=== PATIENT | female | born 1960 | race Caucasian/White ===

== ENCOUNTER 2018-06-07 15:58 | Outpatient (REF) | payer BC, SELFPAY ==
--- NOTE | 2018-06-07 14:45 | PAPFT_PTH ---
PATIENT: Mellisa Finn LOC: [facility] U#:[id number] AGE/SX: 58/F ROOM: RE06/07/[address]: ALEXY Stephen : 1960 BED: DIS: 06/07/2018 SPEC #: [id number] RECD: 06/07/18 17:38 STATUS: KALIN SIU #: [id number] KARTIK: 06/07/18 14:[address]: Betsey Lopez DEPT: [facility] Cytology RECD BY: Jody Figueroa Tissues: 1 - CX/ENDOCX FOR PAP SMEARS Procedures: PAP THIN PREP/UVM Screening HPV DNA PROBE Comments: [id number]
== END 2018-06-07 16:18 ==
LOC: LBN 15:58
PROVIDERS: Visit Provider Nurse Practitioner Family
DX: Z12.4 Encounter for screening for malignant neoplasm of cervix (principal); Z11.51 Encounter for screening for human papillomavirus (HPV)
CPT/HCPCS: 88142; 87624

== ENCOUNTER 2018-08-24 07:15 | Outpatient (CLI) | payer BC, SELFPAY ==
--- NOTE | 2018-08-24 07:30 | DI.MAMMO_ITS ---
SYMPTOM/DIAGNOSIS: SCREENING MAMMOGRAMS: Mammograms were interpreted according to the usual protocol including computer analysis with CAD system, tomosynthesis and C view imaging. The breasts are of moderate density with fairly symmetrical distribution of fibroglandular tissue. No dominant mass identified in either breast. There are very tiny punctate microcalcifications in a regional distribution in the left breast, unchanged in appearance in comparison with previous examinations including 03/2015. No additional change seen. CONCLUSION: No specific evidence of malignancy at this time. Routine screening examinations are suggested at yearly intervals in this age group according to the ACS/ACR guidelines. Category 1. Breast density, Category B. MQSA ASSESSMENT OF FINDINGS: Negative. Category 1. Patient will receive a letter notifying them of these results. BI-RADS category B. There are scattered areas of fibroglandular density.
== END 2018-08-24 07:35 ==
PROVIDERS: PCP Internal Medicine; Visit Provider Internal Medicine
DX: Z12.31 Encounter for screening mammogram for malignant neoplasm of breast (principal)
CPT/HCPCS: 77063; 77067

== ENCOUNTER 2019-10-03 02:03 | Outpatient (CLI) | payer BC, SELFPAY ==
--- NOTE | 2019-10-03 08:30 | DI.MAMMO_ITS ---
EXAM: MG MAMMO SCREENING CLINICAL HISTORY: screening,z12.39 TECHNIQUE: Bilateral full field digital CC and MLO mammographic images were obtained with 3D tomosyn thesis and utilizing computer aided detection (CAD). COMPARISON: Available for comparison. FINDINGS: Masses/Architectural Distortion: None seen. Microcalcifications: No suspicious pleomorphic-type are seen. Skin Thickening/Nipple Retraction: None. IMPRESSION: 1. No significant interval change with no specific features of malignancy noted. 2. Unless there is more urgent need, screening mammography is recommended, as per [place] guidelines. BI-RADS Category 1 - Negative Breast Density - Category B - Scattered areas of fibroglandular density A negative radiographic report should not delay biopsy if a dominant or clinically suspicious mass is present. Up to ten percent of cancers are not identified on mammography. A negative report may reinforce clinical impression. Adenosis and dense breasts may obscure an underlying neoplasm. False positive reports average 6 to 10%. Patient will receive a letter notifying them of these results.
== END 2019-10-03 02:23 ==
PROVIDERS: PCP Internal Medicine; Visit Provider Nurse Practitioner Family
DX: Z12.31 Encounter for screening mammogram for malignant neoplasm of breast (principal)
CPT/HCPCS: 77063; 77067

== ENCOUNTER 2019-11-01 06:22 | Day surgery (SDC) | payer BC, SELFPAY ==
[2019-11-01 06:22] VITALS: BP 110/66; PULSE 52; RESP 18; TEMP 36.1; O2SAT 98
[2019-11-01] MEDS: Lactated Ringers 1,000 ML 80 ML IV (06:52)
--- NOTE | 2019-11-01 07:17 | W.PM.DSUDISC ---
Discharge Plan Disposition Patient Disposition: HOME Condition: Good Discharge Details Reason For Visit: Colonoscopy Attending Provider: Vanda Walker Primary Care Provider: Anahi Martinez Home Meds and New Rx's Prescriptions: Continued estradiol [Estrace] 0.01 % (0.1 mg/gram) cream 42.5 gm VG twice weekly Qty: 1 RF: 3 Discharge Instructions Additional Instructions: Findings: Your colonoscopy was normal. Follow up: Plan for a colonoscopy in 5-7 years due to prior history of polyps Please call if you develop: fevers >101.5 Nausea or Vomiting Abdominal pain that is not transient DAY SURGERY UNIT POST COLONOSCOPY INSTRUCTIONS 1. Because there will be medication in your system for the next 24 hours, you may feel a little sleepy. Your coordination will be affected. Therefore: a. Do not drive or operate dangerous equipment for 24 hours. b. Do not drink alcohol beverages for 24 hours (not even beer). c. Plan to go home and rest for the day. 2. Generally there are no restrictions on your activity after a day or so has gone by, but you may feel a bit fatigued for a few days. 3 After you arrive home you may have a light meal and return to a normal diet as you can tolerate it without feeling sick to your stomach. 4. After surgery, you may feel pain or discomfort. This should be only transient, but if it persists please contact your doctor. 5. If there are any questions regarding the findings of your procedure, please feel free to contact your doctor. 6. If you are unable to contact your doctor with a problem, contact the hospital at [phone]. 7. Continue all your regular medications unless directed otherwise. I understand the above instructions and have no questions. Signature of Patient or Responsible Adult Escort Date/Time Name of Responsible Adult Escort Signature of Nurse Date/Time Activity:: Activity as Tolerated Diet:: As Tolerated Discharge Orders Discharge Orders: Discharge Order (Routine); Ordered 11/01/19 Ordered By: Vanda Walker DS: Diagnosis Discharge Diagnosis (1) History of colon polyps: Status: Acute
--- NOTE | 2019-11-01 08:23 | W.COLOREPORT ---
Date of service: 11/01/19 Time of Service: 08:23 Colonoscopy Report Date of procedure: 11/01/19 Pre-op diagnosis general: History of colon polyps Post-op diagnosis procedure note: other (Normal colon) Procedure: Colonoscopy Surgeon: Vanda Walker Anesthesia proc note operative: MAC Disposition: same day Indications: This patient presents for routine colonoscopy. Her last colonoscopy showed several polyps. She is asymptomatic and has no FH colon cancer. Procedure Description: The patient was placed in the left Stark position. Propofol was titrated to sedation. Digital rectal examination revealed no abnormalities. The scope was advanced to the cecum with some difficulty due to a tortuous colon. She also had many seeds within the colon which fortunately did not impair visualization. The ileocecal valve and appendiceal orifice were clearly identified. The prep was adequate. The scope was slowly withdrawn over the course of greater than 6 minutes with no abnormalities seen in the ascending, transverse, descending, sigmoid colon or rectum including on retroflexed view. The patient tolerated the procedure well and was stable to recovery. Plan for routine screening colonoscopy in 7 years or sooner if symptoms indicate.
[2019-11-01 08:50] VITALS: BP 99/65; PULSE 45; RESP 16; TEMP 36.2; O2SAT 100
== END 2019-11-01 09:10 | disposition home or self-care (01) ==
PROVIDERS: PCP Internal Medicine; Visit Provider Surgery
PROC: 0DJD8ZZ Inspection of Lower Intestinal Tract, Via Natural or Artificial Opening Endoscopic (ICD-10-PCS; CPT 45378; principal; 2019-11-01 07:30)
DX: Z12.11 Encounter for screening for malignant neoplasm of colon (principal); Z86.010 Personal history of colon polyps; Q43.8 Other specified congenital malformations of intestine
CPT/HCPCS: 45378; J2001; J2405

== ENCOUNTER 2020-07-06 09:27 | Outpatient (REF) | payer BC, SELFPAY ==
--- NOTE | 2020-07-03 09:00 | PAPFT_PTH ---
PATIENT: Mellisa Finn LOC: [facility] U#:[id number] AGE/SX: 60/F ROOM: RE07/06/[address]: ALEXY Stephen : 1960 BED: DIS: 07/06/2020 SPEC #: [id number] RECD: 07/06/20 12:56 STATUS: KALIN REEmeka #: [id number] KARTIK: 07/03/20 09:[address]: Betsey Lopez DEPT: [facility] Cytology RECD BY: Jody Figueroa ENTERED: 07/06/20 12:56 SP TYPE: PAPFT OTHR DR: Anahi Martinez Tissues: 1 - CX/ENDOCX FOR PAP SMEARS Procedures: PAP THIN PREP/UVM Screening HPV DNA PROBE Comments: [id number]
== END 2020-07-06 09:28 | disposition home or self-care (01) ==
LOC: LBN 09:27
PROVIDERS: PCP Internal Medicine; Visit Provider Nurse Practitioner Family
DX: Z12.4 Encounter for screening for malignant neoplasm of cervix (principal); Z11.51 Encounter for screening for human papillomavirus (HPV)
CPT/HCPCS: 88142; 87624

== ENCOUNTER 2020-07-16 11:16 | Outpatient (REF) | payer BC, SELFPAY ==
[2020-07-16 16:04] LABS: BUN 19 mg/dL (7-18); CREATININE 0.8 mg/dL (0.55-1.02); Calcium 8.9 mg/dL (8.5-10.1); Calculated LDL 113 mg/dL (<100); Chloride 105 mmol/L (98-107); Cholesterol 181 mg/dL (<200); Glucose 85 mg/dL (74-106); HDL Cholesterol 53 mg/dL (40-60); Potassium 4.5 mmol/L (3.5-5.1); Sodium 143 mmol/L (136-145); Triglyceride 77 mg/dL (<150)
== END 2020-07-16 11:17 | disposition home or self-care (01) ==
LOC: NCHCN 11:16
PROVIDERS: PCP Internal Medicine; Visit Provider Nurse Practitioner Family
DX: Z00.00 Encounter for general adult medical examination without abnormal findings (principal); Z13.220 Encounter for screening for lipoid disorders; Z13.228 Encounter for screening for other metabolic disorders
CPT/HCPCS: 80048; 80061

== ENCOUNTER 2020-10-07 02:10 | Outpatient (CLI) | payer BC, SELFPAY ==
--- NOTE | 2020-10-07 08:47 | DI.MAMMO_ITS ---
Exam(s) MAMMO SCREENING EXAM: MAMMO SCREENING CLINICAL HISTORY: screening. TECHNIQUE: Bilateral full field digital CC and MLO mammographic images were obtained with 3D tomosyn thesis and utilizing computer aided detection (CAD). COMPARISON: Prior mammograms dating back to 1000, the most recent being September 2019. FINDINGS: There are no new spiculated masses nor malignant appearing microcalcification groups. Punctate benign-appearing microcalcifications in the left breast again noted. There is no significant architectural distortion nor skin thickening-retraction. IMPRESSION: Benign findings. No radiographic evidence of malignancy BI-RADS Category 2 - Benign Findings Breast Density - Category B - Scattered areas of fibroglandular density Breast density Category C or D implies that the patient has dense breast tissue. Dense breast tissue can make it harder to find cancer on a mammogram. Dense breast tissue is also associated with an incr eased risk of breast cancer. This information about the result of the mammogram report was provided to the patient to raise their awareness. Use this report when you speak with the patient about their risks for breast cancer, which includes their family history. At that time, you may recommend additional screening tests (Ultrasoun d or MRI) as these tests may add significant information. A negative radiographic report should not delay biopsy if a dominant or clinically suspicious mass is present. Up to ten percent of cancers are not identified on mammography. A negative report may reinforce clinical impression. Adenosis and dense breasts may obscure an underlying neoplasm. False positive reports average 6 to 10%. Patient will receive a letter notifying them of these results.
== END 2020-10-07 02:30 ==
PROVIDERS: PCP Internal Medicine; Visit Provider Nurse Practitioner Family
DX: Z12.31 Encounter for screening mammogram for malignant neoplasm of breast (principal)
CPT/HCPCS: 77063; 77067

== ENCOUNTER → 2021-08-17 01:42 | Outpatient (CLI) | payer BC, SELFPAY ==
--- NOTE | 2021-08-17 15:00 | ETT_ITS ---
APPROVED REPORT Exam: Exercise Treadmill Patient Location: Out-Patient Room/Bed: Stress Nurse: Emily Landin RN Ordering Provider:KEILY FRANKS, Contact Number: [phone] BMI: 24.26 Baseline Rhythm: Sinus Bradycardia Comment: RSR' in V1 and V2, short IA interval, diffuse ST depressions inferior and lateral leads Indications: Bradycardia, exertional chest pain Medical History Medical History: Bradycardia, asthma Cardiac Medications: ProAir inhaler Allergies: NKA Cardiac Risk Factors: Asthma, family hx Previous Cardiac Procedures: None Pretest Chest Pain Characteristics: None Exercise History: Physically active Physical Disabilities: None Lung Sounds: Clear to auscultation, Clear to auscultation Heart Sounds: Regular, Bradycardia Stress Test Details Test: Exercise stress testing was performed using a Abe protocol. Rest Stress HR Resting HR Supine: 46 bpm Max Heart Rate (APMHR): 160 bpm Resting HR Standin bpm Target HR (85% APMHR): 136 bpm Max HR Achieved: 125 bpm % of APMHR: 78 Recovery HR: 80 bpm HR response to stress: Normal HR response to stress Comment: Nondiagnostic, THR not met BP Resting BP Supine: 150/74 mmHg Resting BP Standin/72 mmHg Max BP: 194/76 mmHg Recovery BP: 160/68 mmHg BP response to stress: Normal blood pressure response to stress. ECG Resting ECG: Sinus Bradycardia Ectopy: None Comment: RSR' in V1 and V2, short IA interval, diffuse ST depressions inferior and lateral leads Stress ECG: Sinus Tachycardia ST Change: Nondiagnostic low heart rate Arrhythmia: None Recovery ECG: Sinus Rhythm Recovery ST Change: Nondiagnostic low heart rate Recovery Arrhythmia: Rare PAC Clinical Reason for Termination: Fatigue, stress incontinence Stress Symptoms: General Fatigue Exercise duration: 12 min47 sec Highest Stage Reached: Stage 5: 5.0 mph at 18% grade. Exercise capacity: 14.01 METs Eric Treadmill Score: 12.1 Rate Pressure Product: [id number] Stress ECG Conclusion 1. The resting electrocardiogram was within normal limits 2. The patient exercised on the Abe protocol and completed a workload of 14.01 METS, stopping due t o fatigue 3. Normal hemodynamic response to exercise. Patient achieved 78% of predicted heart rate for age 4. At that level of exercise and heart rate there was no evidence of myocardial ischemia 5. Impression: Excellent exercise capacity, electrocardiographically nondiagnostic due to submaximal heart rate Eric Treadmill Score is 12.1 which is Low risk. Stress Test Summary STAGE Time (mins) Speed (mph) Grade (%) HR BP SYMPTOMS METS Supine 46 150/74 Standing 52 126/72 SpO2 99% 1 3 1.7 10 78 148/70 SpO2 98% 4.6 2 6 2.5 12 92 152/68 SpO2 98% 7 3 9 3.4 14 110 164/68 SpO2 98% 10.2 4 12 4.2 16 121 SpO2 96% 12.9 5 15 5.0 18 125 SpO2 89% 17.2 1 min recovery 112 190/74 SpO2 98% 3 min recovery 82 194/76 SpO2 98% 6 min recovery 80 160/68 SpO2 98%
== END ==
PROVIDERS: PCP Internal Medicine; Visit Provider Nurse Practitioner Family
DX: R00.1 Bradycardia, unspecified (principal); R07.89 Other chest pain
CPT/HCPCS: 93017

== ENCOUNTER 2021-08-18 10:25 | Emergency (ER) | payer BC, SELFPAY ==
[2021-08-18] VITALS (25 sets, daily range): BP systolic 134–158; BP diastolic 58–112; PULSE 36–62; RESP 10–30; TEMP 36.9; O2SAT 98–100
--- NOTE | 2021-08-18 10:15 | RT.EKG_ITS ---
APPROVED REPORT Exam: Resting ECG Reason for Exam: diff breathing Patient Location: E HR:47 bpm ECG Measurements Heart Rate 47 AXIS ID 158 P 73 QRSd 111 QRS 47 QT 487 T 3 QTc 432 Conclusion Sinus bradycardia...rate< [address] depression, diffuse leads...ST <-0.03mV, ant/lat/inf
--- NOTE | 2021-08-18 10:45 | RT.EKG_ITS ---
APPROVED REPORT Exam: Resting ECG Reason for Exam: Low HR in 30s Patient Location: E HR:35 bpm ECG Measurements Heart Rate 35 AXIS VA 149 P 54 QRSd 117 QRS 50 QT 513 T 34 QTc 393 Conclusion Sinus bradycardia...rate< 60 Nonspecific intraventricular conduction delay...QRSd >115mS, not LBBB/RBBB Borderline ST depression, diffuse leads...ST <-0.07mV, ant/lat/inf
[2021-08-18 11:12] LABS: Source Nasal/Nares
--- NOTE | 2021-08-18 11:14 | ED.GENADUL_ITS ---
Discharge Plan Disposition Patient Disposition: NENA FLORES ([facility]) Condition: Serious Discharge Details Clinical Impression: Symptomatic bradycardia Primary Care Provider: Kelsie Strong ED Provider: Chandan Tate Home Meds and New Rx's Prescriptions: No Action clotrimazole-betamethasone 1-0.05 % cream 1 applic topical BID 10 Days Qty: 15 2RF albuterol sulfate [ProAir HFA] 90 mcg/actuation HFA aerosol inhaler 2 puff inhalation Q6H PRN0RF estradiol 0.01 % (0.1 mg/gram) cream See Rx Instructions .ROUTE .COMPLEX Qty: 42.5 4RF Dose Instruction: INSERT 1 GRAM VAGINALLY TWICE WEEKLY Rx Instructions: INSERT 1 GRAM VAGINALLY TWICE WEEKLY Discharge Data Discharge Date/Time-TO BE ENTERED AT DEPARTURE: 08/18/21 13:00 Medical Decision Making 1100 --61-year-old female with history of bradycardia, here with lightheadedness with severe bradycardia heart rate in the 30s. Patient normotensive. Patient currently with heart rate in the 40s intermittently dropping into the 30s and symptomatic during these times. Patient is not on beta-blockers or other inotropic medication. EKG #1 was reviewed and interpreted by me: Please see report, sinus bradycardia with ST depression in lead II, III, aVF, V5 and V6 Repeat EKG was reviewed and interpreted by me: Sinus bradycardia heart rate [address] depression inferior lateral. Concern for symptomatic bradycardia. Consider ACS although had negative stress test yesterday. Pacer pads placed. -- Labs reviewed: Normal electrolytes, normal thyroid function, troponin negative. Patient continues to have intermittent bradycardia while at rest intermittently dropping into the 30s. Plan for transfer to cardiac center. Plan discussed with patient and she consents to transfer. -- [facility] at capacity. Called [facility] transfer center, EKG sent for review-I spoke with Dr. Preciado, on-call locum tenens psychiatrist, discussed ED presentation and course he agrees with need for transfer.. I spoke with Dr. Stewart in the emergency department discussed ED presentation course, he will accept the patient in transfer. Medical Records Medical records reviewed: Yes I reviewed the patient's medical records. Medical records narrative: Cardiac stress test 08/17/2021 interpreted by cardiology: Stress ECG Conclusion 1. The resting electrocardiogram was within normal limits 2. The patient exercised on the Abe protocol and completed a workload of 14.01 METS, stopping due to fatigue 3. Normal hemodynamic response to exercise.? Patient achieved 78% of predicted heart rate for age 4. At that level of exercise and heart rate there was no evidence of myocardial ischemia 5. Impression: Excellent exercise capacity, electrocardiographically nondiagnostic due to submaximal heart rate Eric Treadmill Score is 12.1 which is Low risk. Lab Data Lab results reviewed: Yes I reviewed the patient's lab results. Labs: Laboratory Tests Range/Units 08/18/21 08/18/21 08/18/21 11:05 11:15 11:15 WBC (4.4-10.8) 10^3/uL 5.46 RBC (3.93-5.22) 10^6/uL 4.23 Hgb (11.2-15.7) g/dL 13.0 Hct (36.0-46.0) % 37.9 MCV (80-95) fL 89.6 MCH (27.0-33.0) pg 30.7 MCHC (32.0-36.0) % 34.3 RDW (11.7-14.6) % 12.0 Plt Count (130-400) 10^3/uL 197 MPV (8.0-11.0) fL 9.3 Immature Gran % 0.4 Neutrophils % 66.9 Lymphocytes % 21.6 Monocytes % 7.9 Eosinophils % 2.7 Basophils % 0.5 Nucleated RBC % % 0 Absolute Neutrophils (1.2-6.7) 10^3/uL 3.65 Absolute Lymphocytes (1.2-3.4) 10^3/uL 1.18 L Absolute Monocytes (0.1-0.8) 10^3/uL 0.43 Absolute Eosinophils (0.0-0.7) 10^3/uL 0.15 Absolute Basophils (0.0-0.2) 10^3/uL 0.03 Sodium (136-145) mmol/L 141 Potassium (3.5-5.1) mmol/L 4.1 Chloride (98-107) mmol/L 106 Carbon Dioxide (21.0-32.0) mmol/L 28.5 Anion Gap (3-11) mmol/L 6.5 BUN (7-18) mg/dL 11 Creatinine (0.55-1.02) mg/dL 0.7 Estimated GFR/1.73 m2 (mL/min/1.73m2) >= 60.00 Glucose (74-106) mg/dL 99 Calcium (8.5-10.1) mg/dL 8.6 Magnesium (1.8-2.4) mg/dL 2.3 Total Bilirubin (0.2-1.0) mg/dL 0.9 AST (15-37) U/L 22 ALT (14-59) U/L 26 Alkaline Phosphatase (46-116) U/L 85 Troponin I (<or=60) ng/L < 50 Total Protein (6.4-8.2) g/dL 7.1 Albumin (3.4-5.0) g/dL 4.0 TSH (0.36-3.74) uIU/mL 1.66 COVID-19 Source Nasal/Nares SARS-CoV-2 (PCR) (Negative) Negative Range/Units 08/18/21 13:54 WBC (4.4-10.8) 10^3/uL RBC (3.93-5.22) 10^6/uL Hgb (11.2-15.7) g/dL Hct (36.0-46.0) % MCV (80-95) fL MCH (27.0-33.0) pg MCHC (32.0-36.0) % RDW (11.7-14.6) % Plt Count (130-400) 10^3/uL MPV (8.0-11.0) fL Immature Gran % Neutrophils % Lymphocytes % Monocytes % Eosinophils % Basophils % Nucleated RBC % % Absolute Neutrophils (1.2-6.7) 10^3/uL Absolute Lymphocytes (1.2-3.4) 10^3/uL Absolute Monocytes (0.1-0.8) 10^3/uL Absolute Eosinophils (0.0-0.7) 10^3/uL Absolute Basophils (0.0-0.2) 10^3/uL Sodium (136-145) mmol/L Potassium (3.5-5.1) mmol/L Chloride (98-107) mmol/L Carbon Dioxide (21.0-32.0) mmol/L Anion Gap (3-11) mmol/L BUN (7-18) mg/dL Creatinine (0.55-1.02) mg/dL Estimated GFR/1.73 m2 (mL/min/1.73m2) Glucose (74-106) mg/dL Calcium (8.5-10.1) mg/dL Magnesium (1.8-2.4) mg/dL Total Bilirubin (0.2-1.0) mg/dL AST (15-37) U/L ALT (14-59) U/L Alkaline Phosphatase (46-116) U/L Troponin I (<or=60) ng/L Cancelled Total Protein (6.4-8.2) g/dL Albumin (3.4-5.0) g/dL TSH (0.36-3.74) uIU/mL COVID-19 Source SARS-CoV-2 (PCR) (Negative) HPI General Mode of arrival: ambulatory . Date/Time Provider Initiated Documentation: 08/18/21 10:34 . Limitations to Documentation: no limitations . Information obtained by: patient . HPI Narrative: 61-year-old female with history of bradycardia, presents with chief complaint of lightheadedness. Patient notes lightheadedness started suddenly while seated at rest around 945 this morning. Symptoms were severe. She lowered herself to the ground to see if this would help and it did not improve symptoms. She noticed that her heart rate was very slow in the 30s during this time. Symptoms lasted about 45 minutes. She continues now to have intermittent symptoms anytime her heart rate drops into the 30s. Patient denies associated chest pain. Of note patient had a stress test yesterday that was noted to be normal. Patient denies taking any herbal supplements. No new medications. No tick bites. Related Data Home Medications Medication Instructions Recorded Confirmed clotrimazole-betamethasone 1 1 applic TOPICAL BID 10 Days #15 g 05/18/21 08/18/21 %-0.05 % topical cream albuterol sulfate 90 mcg/actuation 2 puff INHALATION Q6H PRN 08/06/21 08/18/21 aerosol inhaler (ProAir HFA) estradiol See Rx Instructions .ROUTE 08/06/21 08/18/21 .COMPLEX #42.5 g Previous Rx's Medication Instructions Recorded clotrimazole-betamethasone 1 1 applic TOPICAL BID 10 Days #15 g 05/18/21 %-0.05 % topical cream estradiol See Rx Instructions .ROUTE 08/06/21 .COMPLEX #42.5 g Allergies Allergy/AdvReac Type Severity Reaction Status Date / Time No Known Drug Allergies Allergy Verified 08/18/21 10:47 General Stated Complaint: Dizzy/Sync MIKAYLA: 2 Review of Systems All systems reviewed & are unremarkable except as noted in HPI and below Constitutional Constitutional: Denies fever(s) Cardiovascular Cardiovascular: Reports as per HPI PFSH All Active Problems (Updated 08/18/21 @ 12:41 by Chandan Tate MD) Symptomatic bradycardia (Acute) History of colon polyps (Acute) Atrophic vaginitis (Acute 06/03/13) Surgical History S/P hip arthroscopy Family History Mother Essential hypertension Heart disease Hyperlipidemia Myocardial infarction Bladder cancer Father Heart disease Hyperlipidemia Sister Personal history of malignant neoplasm Hyperlipidemia Brother Essential hypertension Social History Smoking/Tobacco Use Status: Never Smoking risk assessment performed?: Yes Alcohol Intake: current Alcohol Intake frequency: 0-2 drinks per day Alcohol type: wine Drug use: Never Substance use type: does not use Do you feel safe at home: Yes Do you feel safe in your relationship?: Yes History History 3 Para 3 Hx # Term Pregnancies Multiple births Hx # Pregnancies Ectopic pregnancies AB induced Hx Number of Living Children AB spontaneous Exam Const General: cooperative HENMT Mouth: moist mucous membranes Eyes Conjunctivae: normal conjunctivae Sclera: normal sclerae Neck Neck: trachea midline and supple Thyroid: thyroid normal Resp Auscultation: clear to auscultation bilaterally, no rales, no rhonchi and no wheezes Cardio Rate: bradycardic and not tachycardic Rhythm: regular rhythm Heart Sounds: no murmurs GI Palpation: soft, not firm, no guarding, no masses, not rigid and nontender Skin General skin exam: no rashes or lesions noted Neuro General: patient alert, patient awake, patient oriented x3 and tone normal Extrem General: no calf tenderness and no edema Psych Appearance: grossly normal Mental Status: mental status grossly normal Speech and Movement: speech and movement normal Course Vital Signs Vital signs: Vital Signs Temperature 36.9 C 08/18/21 10:37 Pulse 45 L 08/18/21 10:37 Respiratory Rate 15 08/18/21 10:37 Blood Pressure 152/76 H 08/18/21 10:37 Pulse Oximetry 100 08/18/21 10:37 Temperature 36.9 C 08/18/21 10:37 Temperature Source Temporal Artery Scan 08/18/21 10:37 Pulse 45 L 08/18/21 10:37 Respiratory Rate 16 08/18/21 10:56 Respiratory Effort Non-Labored 08/18/21 10:56 Respiratory Depth Normal 08/18/21 10:56 Respiratory Pattern Normal 08/18/21 10:56 Blood Pressure 152/76 H 08/18/21 10:37 Blood Pressure Position Supine 08/18/21 10:37 Pulse Oximetry 100 08/18/21 10:37 Oxygen Delivery Method Room Air 08/18/21 10:37 Oxygen Flow Rate 0 08/18/21 10:37 Pain Level 0 08/18/21 10:37 Lab/Test Results Lab/Test Results: Laboratory Tests Range/Units 08/18/21 11:05 COVID-19 Source Nasal/Nares PAWSS Have you Been Recently Intoxicated or Drunk Within the Last 30 days?: No Have you Ever Experienced Previous Episodes of Alcohol Withdrawal?: No Have you ever Experienced Withdrawal Seizures?: No Have you ever Experienced Delirium Tremens(DT)s?: No Have you ever undergone Alcohol Rehabilitation Treatment (i.e, inpt ot outpatient treatment programs)?: No Have you ever Experienced Blackouts?: No Have you ever Combined Alcohol with other Downers within the last 90 days?: No Have you ever Combined Alcohol with any other Substance of Abuse during the last 90 days?: No Positive Blood Alcohol level on Presentation? [PCS.BAL]: No Evidence of Increased Autonomic Activity (i.e. HR>120, tremor, sweating, agitation, nausea)?: No Result: 0
[2021-08-18 11:22] LABS: Abs Immature Grans 0.02 10^3/uL (0.0-0.06); Absolute Basophil Count 0.03 10^3/uL (0.0-0.2); Absolute Eosinophil Count 0.15 10^3/uL (0.0-0.7); Absolute Lymphocyte Count 1.18 10^3/uL (1.2-3.4); Absolute Monocyte Count 0.43 10^3/uL (0.1-0.8); Absolute Neutrophil Count 3.65 10^3/uL (1.2-6.7); Basophils % 0.5; Eosinophils % 2.7; HCT 37.9 % (36.0-46.0); Immature Grans % 0.4; Lymphocytes % 21.6; MCH 30.7 pg (27.0-33.0); MCHC 34.3 % (32.0-36.0); MCV 89.6 fL (80-95); MPV 9.3 fL (8.0-11.0); Monocytes % 7.9; Neutrophils % 66.9; Nucleated RBC 0 %; Platelet Count 197 10^3/uL (130-400); RBC 4.23 10^6/uL (3.93-5.22); RDW-SD 38.9 fL; WBC 5.46 10^3/uL (4.4-10.8)
--- NOTE | 2021-08-18 11:30 | RT.EKG_ITS ---
APPROVED REPORT Exam: Resting ECG Reason for Exam: pain Patient Location: E HR:42 bpm ECG Measurements Heart Rate 42 AXIS FL 154 P 53 QRSd 118 QRS 36 QT 520 T 34 QTc 400 Conclusion Sinus bradycardia...rate< 60 Atrial premature complexes...SV complexes w/ short R-R intvls Nonspecific intraventricular conduction delay...QRSd >115mS, not LBBB/RBBB
[2021-08-18 11:55] LABS: ALT 26 U/L (14-59); AST 22 U/L (15-37); Alkaline Phosphatase 85 U/L (46-116); Anion Gap 6.5 mmol/L (3-11); BUN 11 mg/dL (7-18); Bilirubin, Total 0.9 mg/dL (0.2-1.0); CO2 28.5 mmol/L (21.0-32.0); CREATININE 0.7 mg/dL (0.55-1.02); Calcium 8.6 mg/dL (8.5-10.1); Chloride 106 mmol/L (98-107); Glucose 99 mg/dL (74-106); Magnesium 2.3 mg/dL (1.8-2.4); Potassium 4.1 mmol/L (3.5-5.1); Sodium 141 mmol/L (136-145); TSH (W/Ref FT4) 1.66 uIU/mL (0.36-3.74); Total Protein 7.1 g/dL (6.4-8.2); Troponin I < 50 ng/L (<or=60)
--- NOTE | 2021-08-18 12:26 | DI.RAD_ITS ---
Exam(s) XR PORTABLE CHEST AP EXAM: XR PORTABLE CHEST AP CLINICAL HISTORY: bradycardic. TECHNIQUE: 2D digital imaging was performed. COMPARISON: No exams were available for comparison FINDINGS: Single AP portable view. Cardiac pads in place. Heart size is upper normal. The mediastinum is not widened. Lungs are clear. No infiltrates nor obvious pleural effusions. IMPRESSION: No acute pulmonary findings on this single AP portable view of the chest. DATA REPOSITORY: RADIATION DOSE DELIVERED: All CT scans at this facility use at least one of these dose optimization techniques: automated exposure control; mA and/or kV adjustment per patient size (includes targeted e xams where dose is matched to clinical indication); or iterative reconstruction.
[2021-08-18 12:50] LABS: COVID-19 PCR Negative (Negative)
== END 2021-08-18 13:00 | disposition short-term general hospital (02) ==
PROVIDERS: Emergency Provider Student in an Organized Health Care Education/Training Program; PCP Nurse Practitioner Family
DX: R00.1 Bradycardia, unspecified (principal); R06.02 Shortness of breath; R07.9 Chest pain, unspecified; Z20.822 Contact with and (suspected) exposure to COVID-19
CPT/HCPCS: 36415; 80053; 87635; 93005; 99285; 71045; 83735; 84443; 84484; 85025; 93010

== ENCOUNTER 2021-10-12 09:33 | Outpatient (CLI) | payer BC, SELFPAY ==
--- NOTE | 2021-10-12 09:30 | RT.EKG_ITS ---
APPROVED REPORT Exam: Resting ECG Reason for Exam: cp Patient Location: O HR:79 bpm ECG Measurements Heart Rate 79 AXIS ND 166 P [id number] QRSd 107 QRS 21 QT 382 T 20 QTc 438 Conclusion Atrial-paced complexes...other complexes also detected
== END 2021-10-12 09:34 | disposition home or self-care (01) ==
LOC: DI.CARD 09:34
PROVIDERS: PCP Nurse Practitioner Family; Visit Provider Internal Medicine Cardiovascular Disease
DX: R07.9 Chest pain, unspecified (principal)
CPT/HCPCS: 93010

== ENCOUNTER 2022-05-06 18:32 | Emergency (ER) | payer BC, SELFPAY ==
[2022-05-06] VITALS (35 sets, daily range): BP systolic 101–150; BP diastolic 59–86; PULSE 60–73; RESP 11–22; O2SAT 95–100
--- NOTE | 2022-05-06 18:30 | RT.EKG_ITS ---
APPROVED REPORT Exam: Resting ECG Reason for Exam: chest pain Patient Location: E HR:66 bpm ECG Measurements Heart Rate 66 AXIS SD 153 P 71 QRSd 106 QRS 27 QT 440 T 47 QTc 463 Conclusion Sinus rhythm...normal P axis, V-rate 60- 99 sinus rhtyhm, normal axis. normal intervals, nonischemic
--- NOTE | 2022-05-06 19:00 | DI.RAD_ITS ---
Exam(s) XR CHEST 2V PA LATERAL EXAM: XR CHEST 2V PA LATERAL CLINICAL HISTORY: pain. TECHNIQUE: 2D digital imaging was performed. COMPARISON: CR XR PORTABLE CHEST AP from 08/18/2021 FINDINGS: 2 views: There has been interval placement of a unipolar left subclavian pacemaker with electrode lead in the right atrium. Heart size is normal. The mediastinum is not widened. Lungs are clear. No infiltrates nor pleural effusions. IMPRESSION: No acute pulmonary findings.Cardiac pacemaker as above. DATA REPOSITORY: RADIATION DOSE DELIVERED:
[2022-05-06] MEDS: Aspirin 81 MG CHEW 324 MG CH (19:07)
--- NOTE | 2022-05-06 19:10 | ED.GENADUL_ITS ---
Discharge Plan Disposition Patient Disposition: Home Condition: Stable Discharge Details Clinical Impression: Chest pain Primary Care Provider: Kelsie Strong ED Provider: Gumaro Boles Home Meds and New Rx's Prescriptions: Continued clotrimazole-betamethasone 1-0.05 % cream 1 applic topical BID 10 Days Qty: 15 2RF omeprazole 20 mg capsule,delayed release(DR/EC) 20 mg PO DAILY albuterol sulfate [ProAir HFA] 90 mcg/actuation HFA aerosol inhaler 2 puff inhalation Q6H PRN estradiol 0.01 % (0.1 mg/gram) cream See Rx Instructions .ROUTE .COMPLEX Qty: 42.5 4RF Dose Instruction: INSERT 1 GRAM VAGINALLY TWICE WEEKLY Rx Instructions: INSERT 1 GRAM VAGINALLY TWICE WEEKLY epinephrine [EpiPen] 0.3 mg/0.3 mL auto-injector 0.3 mg IM ONCE Rx Instructions: as a single dose; may repeat once ibuprofen 100 mg/5 mL suspension 200 mg PO Q6H Discharge Instructions Instructions: Chest Pain (ED) Additional Instructions: Work-up in the ER is unremarkable for any obvious emergent process. Your symptoms have resolved completely. Please watch for new or worsening symptoms and return to the ER for any concerns. Otherwise please contact your primary care provider and cardiology team on Monday to discuss your ER visit and need for outpatient reevaluation. Medical Decision Making This is a 62-year-old female with a past medical history of bradycardia, with a pacemaker now for approximately 1 year, stress test at that time normal, presenting for what she describes as 1 hour history of substernal left-sided chest pain that began while a passenger in a car. Reports a mild sensation of shortness of breath as well. Plan to provide full dose aspirin, initiate cardiac work-up including a D-dimer. Within 5-10 minutes of giving the aspirin, patient reports her pain is now a 2 out of 10. Laboratory values reveal no evidence of leukocytosis, anemia, thrombocytopenia. Potassium is 3.4. Electrolytes otherwise unremarkable. Creatinine 0.9 with a GFR of 72.73. Magnesium 2.3, LFTs unremarkable. Troponin less than 50. TSH 4.17, T4 0.87. COVID, flu, RSV negative. BNP 96. Chest x-ray unremarkable. Patient was given a single nitro, soon after reports the pain was down to a 0, she is now asymptomatic. Patient remains hemodynamically stable. Patient agreeable to awaiting a delta troponin. Heart score places the patient in the low score range. Patient remained hemodynamically stable and asymptomatic. Delta troponin remains less than 50. Discussed work-up with patient. She feels well and is comfortable discharge. We discussed the importance of outpatient follow-up through her PCP for further evaluation of her symptoms. Strict discharge and return precautions were provided. Patient understands, is agreeable to this plan, and has no additional questions or concerns upon discharge. This documentation was generated using [employer] system, please disregard any oddities of phrase or misspellings. Medical Records Medical records reviewed: Yes I reviewed the patient's medical records. Imaging Data Radiologic Study: Attestation: I personally reviewed and interpreted this imaging study as follows: Imaging: X-Ray Radiologist's impression: PROCEDURE INFORMATION: Exam: XR Chest Exam date and time: 05/06/2022 7:50 PM Age: 62 years old Clinical indication: Pain; Left-sided; Prior surgery; Surgery date: 6+ months; Surgery type: Pacemaker; Additional info: Chest pain TECHNIQUE: Imaging protocol: Radiologic exam of the chest. Views: 2 views. COMPARISON: CR XR PORTABLE CHEST AP 08/18/2021 12:12 PM FINDINGS: Tubes, catheters and devices: Interval placement of a single wire pacemaker. Lungs: No consolidation. Pleural spaces: Unremarkable. No pleural effusion. No pneumothorax. Heart/Mediastinum: Unremarkable. No cardiomegaly. Bones/joints: Mild scoliosis of the thoracic spine. IMPRESSION: No infiltrates or effusions. Lab Data Lab results reviewed: Yes I reviewed the patient's lab results. Labs: Laboratory Tests Range/Units 05/06/22 05/06/22 05/06/22 18:55 18:55 18:55 WBC (4.4-10.8) 10^3/uL RBC (3.93-5.22) 10^6/uL Hgb (11.2-15.7) g/dL Hct (36.0-46.0) % MCV (80-95) fL MCH (27.0-33.0) pg MCHC (32.0-36.0) % RDW (11.7-14.6) % Plt Count (130-400) 10^3/uL MPV (8.0-11.0) fL Immature Gran % Neutrophils % Lymphocytes % Monocytes % Eosinophils % Basophils % Nucleated RBC % (0.0-0.3) % Absolute Neutrophils (1.2-6.7) 10^3/uL Absolute Lymphocytes (1.2-3.4) 10^3/uL Absolute Monocytes (0.1-0.8) 10^3/uL Absolute Eosinophils (0.0-0.7) 10^3/uL Absolute Basophils (0.0-0.2) 10^3/uL PT (9.3-11.0) sec 9.4 INR (0.9-1.1) 0.9 APTT (21.0-27.5) sec 26.1 D-Dimer (<500) ng/mlFEU 390 Sodium (136-145) mmol/L 140 Potassium (3.5-5.1) mmol/L 3.4 L Chloride (98-107) mmol/L 102 Carbon Dioxide (21.0-32.0) mmol/L 30.2 Anion Gap (3-11) mmol/L 7.8 BUN (7-18) mg/dL 17 Creatinine (0.55-1.02) mg/dL 0.9 Est GFR (CKD-EPI 2020) (mL/min/1.73m2) 72.73 Glucose (74-106) mg/dL 109 H Calcium (8.5-10.1) mg/dL 9.4 Magnesium (1.8-2.4) mg/dL 2.3 Total Bilirubin (0.2-1.0) mg/dL 0.6 AST (15-37) U/L 25 ALT (14-59) U/L 21 Alkaline Phosphatase (46-116) U/L 104 Troponin I (<or=60) ng/L < 50 NT-Pro-B Natriuret Pep (<300) pg/mL 96 Total Protein (6.4-8.2) g/dL 8.7 H Albumin (3.4-5.0) g/dL 4.7 TSH (0.36-3.74) uIU/mL 4.17 H Free T4 (0.76-1.46) ng/dL 0.87 COVID-19 Source SARS-CoV-2 (PCR) (Negative) Influenza Type A (PCR) (Negative) Influenza Type B (PCR) (Negative) RSV (PCR) (Negative) Range/Units 05/06/22 05/06/22 05/06/22 18:55 19:10 21:50 WBC (4.4-10.8) 10^3/uL 6.42 RBC (3.93-5.22) 10^6/uL 4.80 Hgb (11.2-15.7) g/dL 14.2 Hct (36.0-46.0) % 42.3 MCV (80-95) fL 88 MCH (27.0-33.0) pg 29.6 MCHC (32.0-36.0) % 33.6 RDW (11.7-14.6) % 11.9 Plt Count (130-400) 10^3/uL 230 MPV (8.0-11.0) fL 9.5 Immature Gran % 0.2 Neutrophils % 55.4 Lymphocytes % 32.1 Monocytes % 7.2 Eosinophils % 4.5 Basophils % 0.6 Nucleated RBC % (0.0-0.3) % 0.0 Absolute Neutrophils (1.2-6.7) 10^3/uL 3.56 Absolute Lymphocytes (1.2-3.4) 10^3/uL 2.06 Absolute Monocytes (0.1-0.8) 10^3/uL 0.46 Absolute Eosinophils (0.0-0.7) 10^3/uL 0.29 Absolute Basophils (0.0-0.2) 10^3/uL 0.04 PT (9.3-11.0) sec INR (0.9-1.1) APTT (21.0-27.5) sec D-Dimer (<500) ng/mlFEU Sodium (136-145) mmol/L Potassium (3.5-5.1) mmol/L Chloride (98-107) mmol/L Carbon Dioxide (21.0-32.0) mmol/L Anion Gap (3-11) mmol/L BUN (7-18) mg/dL Creatinine (0.55-1.02) mg/dL Est GFR (CKD-EPI 2020) (mL/min/1.73m2) Glucose (74-106) mg/dL Calcium (8.5-10.1) mg/dL Magnesium (1.8-2.4) mg/dL Total Bilirubin (0.2-1.0) mg/dL AST (15-37) U/L ALT (14-59) U/L Alkaline Phosphatase (46-116) U/L Troponin I (<or=60) ng/L < 50 NT-Pro-B Natriuret Pep (<300) pg/mL Total Protein (6.4-8.2) g/dL Albumin (3.4-5.0) g/dL TSH (0.36-3.74) uIU/mL Free T4 (0.76-1.46) ng/dL COVID-19 Source Nasopharynx SARS-CoV-2 (PCR) (Negative) Negative Influenza Type A (PCR) (Negative) Negative Influenza Type B (PCR) (Negative) Negative RSV (PCR) (Negative) Negative ECG Data Attestation: I personally reviewed and interpreted this ECG (s) as follows: Interpretation: Sinus rhythm, ventricular rate of 66, no STEMI. HPI General Mode of arrival: ambulatory . Date/Time Provider Initiated Documentation: 05/06/22 18:42 . Limitations to Documentation: no limitations . Information obtained by: patient . HPI Narrative: This is a 62-year-old female with a past medical history of a pacemaker secondary to bradycardia approximately 1 year ago, chronic low back pain, GERD, presenting to the ER tonight reporting substernal and left-sided chest pain- pressure 4 out of 10 that has been there fairly constant since about 1700. She states the pain began while she was in a car, nothing makes it worse or better. She reports that she tried taking Tums without relief of her symptoms. Reports that she has a mild shortness of breath associated with her symptoms. Patient states that she had a normal stress test approximately 1 year ago. She is not a smoker. Denies recent illness or trauma. Related Data Home Medications Medication Instructions Recorded Confirmed clotrimazole-betamethasone 1 1 applic topical BID 10 days #15 05/18/21 02/02/22 %-0.05 % topical cream grams albuterol sulfate 90 mcg/actuation 2 puff inhalation Q6H PRN 08/06/21 02/02/22 aerosol inhaler (ProAir HFA) estradiol 0.01% (0.1 mg/gram) See Rx Instructions .Route 08/06/21 02/02/22 vaginal cream .COMPLEX #42.5 grams epinephrine 0.3 mg/0.3 mL 0.3 mg IM ONCE 08/25/21 02/02/22 injection, auto-injector (EpiPen) ibuprofen 100 mg/5 mL oral 200 mg PO Q6H 08/25/21 02/02/22 suspension omeprazole 20 mg capsule,delayed 20 mg PO DAILY 10/12/21 02/02/22 release Previous Rx's Medication Instructions Recorded clotrimazole-betamethasone 1 1 applic topical BID 10 days #15 05/18/21 %-0.05 % topical cream grams estradiol 0.01% (0.1 mg/gram) See Rx Instructions .Route 08/06/21 vaginal cream .COMPLEX #42.5 grams Allergies Allergy/AdvReac Type Severity Reaction Status Date / Time No Known Drug Allergies Allergy Verified 08/18/21 10:47 General Stated Complaint: Chest Pain MIKAYLA: 2 Review of Systems Constitutional Constitutional: Denies fatigue, Denies fever(s) and Denies headache(s) Eyes Eyes: Denies change in vision ENT Ears, Nose, Mouth, and Throat: Denies headache(s) and Denies neck pain Cardiovascular Cardiovascular: Reports chest pain and Reports dyspnea Respiratory Respiratory: Denies cough and Reports dyspnea Gastrointestinal Gastrointestinal: Denies abdominal pain, Denies nausea and Denies vomiting Musculoskeletal Musculoskeletal: Reports back pain (Chronic) and Denies neck pain Integumentary/Breasts Skin/Breast: Denies rash Neurologic Neurologic: Denies headache(s) Endocrine Endocrine: Denies fatigue Hematologic/Lymphatic Hematologic/Lymphatic: Denies easy bleeding and Denies easy bruising PFSH All Active Problems (Updated 05/06/22 @ 22:52 by CHANDRAKANT Franco) Chest pain (Acute) Sinus node dysfunction (Acute) Pacemaker (Acute) [employer] [place] single lead atrial pacemaker programmed AAI; implant 08/05/2021 at [facility] Atopic dermatitis (Acute) Bradycardia (Acute) Chest pain, exertional (Acute) Constipation (Acute) Chronic low back pain (Acute) History of colon polyps (Acute) Atrophic vaginitis (Acute 06/03/13) Medical History Family history of cardiovascular disease Female stress incontinence Surgical History S/P hip arthroscopy Family History Mother Essential hypertension Heart disease Hyperlipidemia Myocardial infarction Bladder cancer Father Heart disease Hyperlipidemia Sister Personal history of malignant neoplasm Hyperlipidemia Brother Essential hypertension Social History Smoking/Tobacco Use Status: Never Smoking risk assessment performed?: Yes Alcohol Intake: current Alcohol Intake frequency: 0-2 drinks per day Alcohol type: wine Drug use: Never Substance use type: does not use Do you feel safe at home: Yes Do you feel safe in your relationship?: Yes History History 3 Para 3 Hx # Term Pregnancies Multiple births Hx # Pregnancies Ectopic pregnancies AB induced Hx Number of Living Children AB spontaneous Exam Const General: cooperative, healthy appearing, comfortable and no acute distress Orientation: alert, awake and oriented x3 HENMT Head: normal to inspection, normocephalic and atraumatic Face and sinus: normal facial exam Mouth: moist mucous membranes Eyes General: appearance normal, both eyes and all related structures Conjunctivae: conjunctivae normal Neck Neck: normal visual inspection, full ROM, no meningeal signs, trachea midline and supple Chest Chest: normal inspection of the chest and normal palpation of entire chest wall Resp Effort & Inspection: normal respiratory effort and able to speak in complete sentences Auscultation: clear to auscultation bilaterally Cardio Rate: regular rate Rhythm: regular rhythm GI Palpation: soft, not firm, no guarding, no pulsatile masses and nontender Back/Spine/Pelvis Back: no CVA tenderness Skin General skin exam: no rashes or lesions noted Neuro General: patient alert, patient awake, moves all extremities and no focal motor deficits Cognition: normal cognition Speech: speech normal Gait: normal gait Motor: muscle tone normal throughout Sensory Exam: no sensory deficits noted Extrem General: normal to inspection, full ROM, capillary refill normal, no pedal edema and no calf tenderness Psych Appearance: grossly normal Mental Status: mental status grossly normal Course Vital Signs Vital signs: Vital Signs Pulse 70 05/06/22 18:39 Respiratory Rate 20 05/06/22 18:39 Blood Pressure 150/86 H 05/06/22 18:39 Pulse Oximetry 100 05/06/22 18:39 Temperature Source Temporal Artery Scan 05/06/22 18:39 Pulse 70 05/06/22 18:39 Respiratory Rate 20 05/06/22 18:39 Respiratory Effort Non-Labored 05/06/22 18:45 Respiratory Depth Normal 05/06/22 18:45 Respiratory Pattern Normal 05/06/22 18:45 Blood Pressure 150/86 H 05/06/22 18:39 Pulse Oximetry 100 05/06/22 18:39 Oxygen Delivery Method Room Air 05/06/22 18:39 Oxygen Flow Rate 0 05/06/22 18:39 Pain Level 5 05/06/22 18:39 PAWSS Have you Been Recently Intoxicated or Drunk Within the Last 30 days?: No Have you Ever Experienced Previous Episodes of Alcohol Withdrawal?: No Have you ever Experienced Withdrawal Seizures?: No Have you ever Experienced Delirium Tremens(DT)s?: No Have you ever undergone Alcohol Rehabilitation Treatment (i.e, inpt ot outpatient treatment programs)?: No Have you ever Experienced Blackouts?: No Have you ever Combined Alcohol with other Downers within the last 90 days?: No Have you ever Combined Alcohol with any other Substance of Abuse during the last 90 days?: No Positive Blood Alcohol level on Presentation? [PCS.BAL]: No Evidence of Increased Autonomic Activity (i.e. HR>120, tremor, sweating, agitation, nausea)?: No Result: 0
[2022-05-06 19:47] LABS: Abs Immature Grans 0.01 10^3/uL (0.0-0.06); Absolute Basophil Count 0.04 10^3/uL (0.0-0.2); Absolute Eosinophil Count 0.29 10^3/uL (0.0-0.7); Absolute Lymphocyte Count 2.06 10^3/uL (1.2-3.4); Absolute Monocyte Count 0.46 10^3/uL (0.1-0.8); Absolute Neutrophil Count 3.56 10^3/uL (1.2-6.7); Basophils % 0.6; Eosinophils % 4.5; HCT 42.3 % (36.0-46.0); HGB 14.2 g/dL (11.2-15.7); Immature Grans % 0.2; Lymphocytes % 32.1; MCH 29.6 pg (27.0-33.0); MCHC 33.6 % (32.0-36.0); MCV 88 fL (80-95); MPV 9.5 fL (8.0-11.0); Monocytes % 7.2; Neutrophils % 55.4; Platelet Count 230 10^3/uL (130-400); RDW 11.9 % (11.7-14.6); RDW-SD 38.1 fL; WBC 6.42 10^3/uL (4.4-10.8)
[2022-05-06] MEDS: nitroGLYcerin 0.4 MG TAB SL (19:55)
[2022-05-06 20:04] LABS: COVID-19 PCR Negative (Negative); Influenza A PCR Negative (Negative); Influenza B PCR Negative (Negative); RSV PCR Negative (Negative)
--- NOTE | 2022-05-06 20:09 | DI.VRAD_ITS ---
PROCEDURE INFORMATION: Exam: XR Chest Exam date and time: 05/06/2022 7:50 PM Age: 62 years old Clinical indication: Pain; Left-sided; Prior surgery; Surgery date: 6+ months; Surgery type: Pacemaker; Additional info: Chest pain TECHNIQUE: Imaging protocol: Radiologic exam of the chest. Views: 2 views. COMPARISON: CR XR PORTABLE CHEST AP 08/18/2021 12:12 PM FINDINGS: Tubes, catheters and devices: Interval placement of a single wire pacemaker. Lungs: No consolidation. Pleural spaces: Unremarkable. No pleural effusion. No pneumothorax. Heart/Mediastinum: Unremarkable. No cardiomegaly. Bones/joints: Mild scoliosis of the thoracic spine. IMPRESSION: No infiltrates or effusions. Dictated and Authenticated by: Shine Rodriguez MD. Ordering:JONNA Naik MD
[2022-05-06 20:10] LABS: Source Nasopharynx
[2022-05-06 20:16] LABS: INR 0.9 (0.9-1.1); PTT Activated 26.1 sec (21.0-27.5); Prothrombin Time 9.4 sec (9.3-11.0)
[2022-05-06 20:19] LABS: ALT 21 U/L (14-59); AST 25 U/L (15-37); Albumin 4.7 g/dL (3.4-5.0); Alkaline Phosphatase 104 U/L (46-116); Anion Gap 7.8 mmol/L (3-11); BUN 17 mg/dL (7-18); Bilirubin, Total 0.6 mg/dL (0.2-1.0); CO2 30.2 mmol/L (21.0-32.0); CREATININE 0.9 mg/dL (0.55-1.02); Calcium 9.4 mg/dL (8.5-10.1); Chloride 102 mmol/L (98-107); Estimated GFR 72.73 (mL/min/1.73m2); Glucose 109 mg/dL (74-106); Magnesium 2.3 mg/dL (1.8-2.4); Potassium 3.4 mmol/L (3.5-5.1); Sodium 140 mmol/L (136-145); Total Protein 8.7 g/dL (6.4-8.2); Troponin I < 50 ng/L (<or=60)
[2022-05-06 20:27] LABS: NT-proBNP 96 pg/mL (<300); TSH (W/Ref FT4) 4.17 uIU/mL (0.36-3.74)
[2022-05-06 20:36] LABS: D-Dimer 390 ng/mlFEU (<500)
[2022-05-06 20:51] LABS: FREE T4 0.87 ng/dL (0.76-1.46)
[2022-05-06 22:39] LABS: Troponin I < 50 ng/L (<or=60)
== END 2022-05-06 22:58 | disposition home or self-care (01) ==
PROVIDERS: Emergency Provider Physician Assistant; PCP Nurse Practitioner Family
DX: R07.2 Precordial pain (principal); Z20.822 Contact with and (suspected) exposure to COVID-19
CPT/HCPCS: 80053; 87637; 93005; 99284; 71046; 83735; 83880; 84439; 84443; 84484; 85025; 85379; 85610; 85730; 93010; 99285

== ENCOUNTER 2022-06-15 12:31 | Outpatient (REF) | payer BC, SELFPAY ==
[2022-06-15 15:48] LABS: TSH (W/Ref FT4) 3.98 uIU/mL (0.36-3.74)
[2022-06-15 16:20] LABS: FREE T4 0.87 ng/dL (0.76-1.46)
== END 2022-06-15 12:32 | disposition home or self-care (01) ==
LOC: NCHCN 12:31
PROVIDERS: PCP Nurse Practitioner Family; Visit Provider Nurse Practitioner Family
DX: R94.6 Abnormal results of thyroid function studies (principal)
CPT/HCPCS: 84439; 84443

== ENCOUNTER 2022-10-24 14:17 | Outpatient (REF) | payer BC, SELFPAY ==
[2022-10-24 19:40] LABS: TSH (W/Ref FT4) 1.69 uIU/mL (0.36-3.74)
== END 2022-10-24 14:18 | disposition home or self-care (01) ==
LOC: NCHCN 14:17
PROVIDERS: PCP Nurse Practitioner Family; Visit Provider Nurse Practitioner Family
DX: R94.6 Abnormal results of thyroid function studies (principal)
CPT/HCPCS: 84443

== ENCOUNTER 2022-10-27 00:42 | Outpatient (CLI) | payer BC, SELFPAY ==
--- NOTE | 2022-10-27 | DI.MAMMO_ITS ---
Exam(s) MAMMO SCREENING EXAM: MAMMO SCREENING CLINICAL HISTORY: SCREENING MAMMO FOR BREAST CANCER Z12.39. TECHNIQUE: Bilateral full field digital CC and MLO mammographic images were obtained with 3D tomosyn thesis and utilizing computer aided detection (CAD). COMPARISON: Prior mammograms were reviewed. FINDINGS: There has been no significant change in the appearance and distribution of the fibroglandular tissue. There are no new spiculated masses nor malignant appearing microcalcification groups. There is no significant architectural distortion nor skin thickening-retraction. IMPRESSION: No radiographic evidence of malignancy. BI-RADS Category 1 - Negative Breast Density - Category B - Scattered areas of fibroglandular density Breast density Category C or D implies that the patient has dense breast tissue. Dense breast tissue can make it harder to find cancer on a mammogram. Dense breast tissue is also associated with an incr eased risk of breast cancer. This information about the result of the mammogram report was provided to the patient to raise their awareness. Use this report when you speak with the patient about their risks for breast cancer, which includes their family history. At that time, you may recommend additional screening tests (Ultrasoun d or MRI) as these tests may add significant information. A negative radiographic report should not delay biopsy if a dominant or clinically suspicious mass is present. Up to ten percent of cancers are not identified on mammography. A negative report may reinforce clinical impression. Adenosis and dense breasts may obscure an underlying neoplasm. False positive reports average 6 to 10%. Patient will receive a letter notifying them of these results.
== END 2022-10-27 01:02 ==
LOC: DI 00:42
PROVIDERS: PCP Nurse Practitioner Family; Visit Provider Nurse Practitioner Family
DX: Z12.31 Encounter for screening mammogram for malignant neoplasm of breast (principal)
CPT/HCPCS: 77063; 77067

== ENCOUNTER 2022-11-07 03:19 | Outpatient (CLI) | payer BC, SELFPAY ==
[2022-11-07] MEDS: Inhaler, Assist Device 1 EACH MC (09:06)
[2022-11-07] MEDS: Albuterol HFA 18 GM 200 PUFF INH IH (09:06)
--- NOTE | 2022-11-08 13:01 | W.PFT ---
Date of service: 11/07/22 Time of Service: 08:01 Pulmonary Function Test Result Indications: Exertional chest pain Interpretation Spirometry: There is moderate airflow limitation. There is no significant bronchodilator response. Lung Volumes: There is air trapping Diffusion Capacity: Diffusion is normal Airway Pressure: Increased airways resistance Impression Moderate airflow limitation with air trapping and a normal diffusion. In the correct clinical context, this may represent uncontrolled asthma, COPD (chronic bronchitis) or asthma-COPD overlap syndrome. Clinical Correlation therefore is recommended.
== END 2022-11-07 03:20 | disposition home or self-care (01) ==
LOC: RT 03:20
PROVIDERS: PCP Nurse Practitioner Family; Visit Provider Nurse Practitioner Family
DX: R06.2 Wheezing (principal); R07.89 Other chest pain
CPT/HCPCS: 94060; 94726; 94729

== ENCOUNTER 2023-10-18 08:27 | Outpatient (CLI) | payer BC, SELFPAY ==
--- NOTE | 2023-10-18 08:15 | RT.EKG_ITS ---
APPROVED REPORT Exam: Resting ECG Reason for Exam: bradycardia Patient Location: O HR:64 bpm ECG Measurements Heart Rate 64 AXIS MA 157 P [id number] QRSd 109 QRS 34 QT 420 T 59 QTc 434 Conclusion Atrial-paced rhythm Minimal ST depression, anterolateral leads...ST <-0.04mV, I aVL V2-V6
== END 2023-10-18 08:28 | disposition home or self-care (01) ==
LOC: DI.CARD 08:27
PROVIDERS: Visit Provider Internal Medicine Cardiovascular Disease
DX: Z95.0 Presence of cardiac pacemaker (principal); R00.1 Bradycardia, unspecified
CPT/HCPCS: 93010

== ENCOUNTER 2023-10-26 13:40 | Outpatient (REF) | payer BC, SELFPAY ==
[2023-10-26 20:03] LABS: ALT 19 U/L (14-59); AST 19 U/L (15-37); Albumin 3.9 g/dL (3.4-5.0); Alkaline Phosphatase 80 U/L (46-116); BUN 15 mg/dL (7-18); Bilirubin, Total 0.6 mg/dL (0.2-1.0); CREATININE 0.7 mg/dL (0.55-1.02); Calcium 8.7 mg/dL (8.5-10.1); Calculated LDL 86 mg/dL (<100); Chloride 104 mmol/L (98-107); Cholesterol 163 mg/dL (<200); Estimated GFR 97.72 (mL/min/1.73m2); FREE T4 0.86 ng/dL (0.76-1.46); Glucose 83 mg/dL (74-106); HDL Cholesterol 49 mg/dL (40-60); Magnesium 2.2 mg/dL (1.8-2.4); Potassium 4.3 mmol/L (3.5-5.1); Sodium 141 mmol/L (136-145); TSH 1.68 uIU/Ml (0.36-3.74); Total Protein 7.1 g/dL (6.4-8.2); Triglyceride 142 mg/dL (<150)
== END 2023-10-26 13:41 | disposition home or self-care (01) ==
LOC: NCHCN 13:40
PROVIDERS: Visit Provider Nurse Practitioner Family
DX: Z13.6 Encounter for screening for cardiovascular disorders (principal); Z83.49 Family history of other endocrine, nutritional and metabolic diseases; R25.2 Cramp and spasm
CPT/HCPCS: 80053; 80061; 83735; 84439; 84443

== ENCOUNTER → 2023-11-10 00:12 | Outpatient (CLI) | payer BC, SELFPAY ==
--- NOTE | 2023-11-10 | DI.MAMMO_ITS ---
Exam(s) MAMMO SCREENING EXAM: MAMMO SCREENING CLINICAL HISTORY: SCREENING, Z12.31 TECHNIQUE: Bilateral full field digital CC and MLO mammographic images were obtained with 3D tomosyn thesis and utilizing computer aided detection (CAD). COMPARISON: Available for comparison. FINDINGS: Masses/Architectural Distortion: None seen. Microcalcifications: No suspicious pleomorphic-type are seen. Skin Thickening/Nipple Retraction: None. IMPRESSION: 1. No significant interval change with no specific features of malignancy noted. 2. Unless there is more urgent need, screening mammography is recommended, as per [place] [employer] guidelines. BI-RADS Category 1 - Negative Breast Density - Category B - Scattered areas of fibroglandular density Breast density category C or D implies that the patient has dense breast tissue. Dense breast tissue is very common and is not abnormal but dense breast tissue can make it harder to find cancer on a ma mmogram. Also, dense breast tissue may increase their breast cancer risk. This information about the result of the mammogram report was provided to the patient to raise their awareness. Use this report when you speak with the patient about their risks for breast cancer, which includes their family hist ory. At that time, you may recommend for more screening tests (Ultrasound or MRI) as they might be us eful based on their risk. A negative radiographic report should not delay biopsy if a dominant or clinically suspicious mass is present. Up to ten percent of cancers are not identified on mammography. A negative report may reinforce clinical impression. Adenosis and dense breasts may obscure an underlying neoplasm. False positive reports average 6 to 10%. Patient will receive a letter notifying them of these results.
== END ==
PROVIDERS: Visit Provider Nurse Practitioner Family
DX: Z12.31 Encounter for screening mammogram for malignant neoplasm of breast (principal)
CPT/HCPCS: 77063; 77067

== ENCOUNTER → 2023-11-27 11:56 | Outpatient (CLI) | payer BC, SELFPAY ==
--- NOTE | 2023-11-27 10:56 | DI.RAD_ITS ---
Exam(s) XR CHEST 2V PA LATERAL EXAM: XR CHEST 2V PA LATERAL CLINICAL HISTORY: chest pressure, mild persistent asthma, J45.30. TECHNIQUE: 2D digital imaging was performed. COMPARISON: CR,XR XR CHEST 2V PA LATERAL from 05/06/2022 FINDINGS: 2 views: Again noted is a unipolar left subclavian pacemaker with lead tip in upper right atrium, unchanged. Heart size is normal. The mediastinum is not widened. Lungs are clear. No infiltrates nor pleural effusions. IMPRESSION: No acute pulmonary findings. Unipolar pacemaker as above. DATA REPOSITORY: RADIATION DOSE DELIVERED:
[2023-11-27 11:01] LABS: Abs Immature Grans 0.01 10^3/uL (0.0-0.06); Absolute Basophil Count 0.03 10^3/uL (0.0-0.2); Absolute Eosinophil Count 0.25 10^3/uL (0.0-0.7); Absolute Lymphocyte Count 1.13 10^3/uL (1.2-3.4); Absolute Monocyte Count 0.52 10^3/uL (0.1-0.8); Basophils % 0.5 %; Eosinophils % 4.4 %; HCT 36.4 % (36.0-46.0); HGB 12.6 g/dL (11.2-15.7); Immature Grans % 0.2 %; MCH 31.2 pg (27.0-33.0); MCHC 34.6 % (32.0-36.0); MCV 90 fL (80-95); MPV 9.4 fL (8.0-11.0); Monocytes % 9.2 %; Neutrophils % 65.7 %; Platelet Count 171 10^3/uL (130-400); RBC 4.04 10^6/uL (3.93-5.22); RDW 12.3 % (11.7-14.6); RDW-SD 40.2 fL; WBC 5.64 10^3/uL (4.4-10.8)
[2023-11-28 13:22] LABS: IgE 6 IU/mL (<158)
== END ==
PROVIDERS: Visit Provider Internal Medicine Critical Care Medicine
DX: J45.30 Mild persistent asthma, uncomplicated (principal); Z95.0 Presence of cardiac pacemaker
CPT/HCPCS: 36415; 71046; 82785; 85025

== ENCOUNTER 2023-12-07 03:11 | Outpatient (CLI) | payer BC, SELFPAY ==
[2023-12-07] MEDS: Inhaler, Assist Device 1 EACH MC (11:39)
[2023-12-07] MEDS: Albuterol HFA 18 GM 200 PUFF INH IH (11:39)
[2023-12-07] MEDS: Methacholine 100 MG VIAL IH (11:39)
--- NOTE | 2023-12-07 11:43 | W.PFT ---
Date of service: 12/07/23 Time of Service: 10:00 Pulmonary Function Test Result Requesting Provider Yaima Madrigal Indications: POTTER Impression Spirometry Normal FEV1/FVC at 70%, mild decrease in FEv1 at 7# and normal FVC. No formal obstruction observed. Bronchoprovocation Test Baseline FEV1 2.32L. There was a 20% decrease in FEV1 after 4mg/ml w/ prompt normalization after albuterol. Impression Positive Study. Clinical Correlation therefore is recommended.
== END 2023-12-07 03:12 | disposition home or self-care (01) ==
PROVIDERS: Visit Provider Internal Medicine Critical Care Medicine
DX: R06.09 Other forms of dyspnea (principal); J45.909 Unspecified asthma, uncomplicated
CPT/HCPCS: 00123; 94060; 94070; J7674

== ENCOUNTER 2024-05-27 13:24 | Outpatient (CLI) | payer BC, SELFPAY ==
--- NOTE | 2024-05-27 10:47 | DI.RAD_ITS ---
Exam(s) XR CHEST 2V PA LATERAL EXAM: XR CHEST 2V PA LATERAL CLINICAL HISTORY: COUGH,R05.9 TECHNIQUE: 2D digital imaging was performed. Two views. COMPARISON: CR XR CHEST 2V PA LATERAL from 11/27/2023 FINDINGS: HEART: Normal size. Pacemaker. Aorta: Not dilated. PULMONARY VASCULATURE: Normal. MEDIASTINUM: Unremarkable. LUNGS: There is streaky densities at the medial left lung base could represent atelectasis versus inf iltrate. The right lung is clear. PLEURAL SPACE: No pleural effusion or pneumothorax. BONE: mild scoliosis. SOFT TISSUES: Unremarkable. IMPRESSION: Infiltrate versus atelectasis at the medial left lung base. DATA REPOSITORY: RADIATION DOSE DELIVERED:
== END 2024-05-27 13:44 ==
LOC: DI 13:25
PROVIDERS: Visit Provider Nurse Practitioner Family
DX: R91.8 Other nonspecific abnormal finding of lung field (principal); R05.9 Cough, unspecified
CPT/HCPCS: 71046

== ENCOUNTER 2024-06-24 15:53 | Outpatient (CLI) | payer BC, SELFPAY ==
--- NOTE | 2024-06-24 14:52 | DI.RAD_ITS ---
Exam(s) XR CHEST 2V PA LATERAL EXAM: XR CHEST 2V PA LATERAL CLINICAL HISTORY: COUGH, R05.9, RECENT CAP LT MEDIAL LUNG BASE 4 WKS AGO, WORSENING COUGH. TECHNIQUE: 2D digital imaging was performed. COMPARISON: CR XR CHEST 2V PA LATERAL from 11/27/2023 CR XR CHEST 2V PA LATERAL from 05/27/2024 FINDINGS: 2 views: Heart size is normal. The mediastinum is not widened. Unipolar left subclavian pacemaker again noted with distal lead tip in the right atrium. Right lung is clear. Previously described increased markings in the left lower lobe posterior basal segment are again noted. No pleural effusions. No pulmonary edema. No pneumothorax. No fractures. IMPRESSION: Increased markings in the left lower lobe posterior basal segment again noted, similar to 05/27/2024. This finding was not evident on chest x-ray of 11/27/2023. Probable mild infiltrate DATA REPOSITORY: RADIATION DOSE DELIVERED:
== END 2024-06-24 16:13 ==
LOC: DI 15:53
PROVIDERS: Visit Provider Nurse Practitioner Family
DX: R05.9 Cough, unspecified (principal)
CPT/HCPCS: 71046

== ENCOUNTER 2024-09-19 10:31 | Outpatient (REF) | payer BC, SELFPAY ==
[2024-09-19 15:12] LABS: HGB 12.4 g/dL (11.2-15.7); MCH 29.4 pg (27.0-33.0); MCHC 33.5 % (32.0-36.0); MCV 88 fL (80-95); Platelet Count 220 10^3/uL (130-400); RBC 4.22 10^6/uL (3.93-5.22); RDW 14.3 % (11.7-14.6); RDW-SD 45.4 fL
[2024-09-19 15:31] LABS: ALT 28 U/L (14-59); AST 25 U/L (15-37); Albumin 4.2 g/dL (3.4-5.0); Alkaline Phosphatase 82 U/L (46-116); BUN 16 mg/dL (7-18); Bilirubin, Total 0.8 mg/dL (0.2-1.0); CREATININE 0.8 mg/dL (0.55-1.02); Calcium 9.6 mg/dL (8.5-10.1); Chloride 107 mmol/L (98-107); Estimated GFR 82.74 (mL/min/1.73m2); Glucose 85 mg/dL (74-106); Potassium 4.7 mmol/L (3.5-5.1); Sodium 143 mmol/L (136-145); Total Protein 7.2 g/dL (6.4-8.2)
[2024-09-22 15:00] LABS: Anaplasma phagocytophilum Negative (Negative); B. miyamotoi PCR Negative (Negative); Babesia divergens/MO-1 Negative (Negative); Babesia duncani Negative (Negative); Babesia microti Negative (Negative); Ehrlichia chaffeensis Negative (Negative); Ehrlichia ewingii/canis Negative (Negative); Ehrlichia muris eauclairensis Negative (Negative)
[2024-09-23 10:53] LABS: Lyme Ab w Rflx to Lyme Confirm Negative (Negative)
== END 2024-09-19 10:32 | disposition home or self-care (01) ==
LOC: LBN 10:31
PROVIDERS: PCP Nurse Practitioner Family; Visit Provider Physician Assistant Medical
DX: M79.10 Myalgia, unspecified site (principal)
CPT/HCPCS: 80053; 85027; 87798; 86618

== ENCOUNTER 2025-02-04 17:37 | Outpatient (REF) | payer BC, SELFPAY | END 2025-02-04 17:38 | disposition home or self-care (01) | LOC: LBN 17:37 | PROVIDERS: PCP Nurse Practitioner Family; Visit Provider Obstetrics & Gynecology | DX: N95.0 Postmenopausal bleeding (principal) | CPT/HCPCS: 88142; 88305; 87624 ==

== ENCOUNTER 2025-02-06 01:26 | Outpatient (CLI) | payer BC, SELFPAY ==
--- NOTE | 2025-02-06 | DI.MAMMO_ITS ---
Exam(s) MAMMO SCREENING EXAM: MAMMO SCREENING CLINICAL HISTORY: SCREENING MAMMO Z12.31 TECHNIQUE: Mammograms were interpreted according to the usual protocol including computer analysis with CAD system, tomosynthesis and C-view imaging. COMPARISON: No exams were available for comparison FINDINGS: The breasts are composed of scattered fibroglandular densities, Breast Density category B. No suspicious masses or suspicious microcalcifications are seen. A pacemaker is noted over the left pectoral muscle. No skin thickening or abnormal axillary lymph nodes are seen. There has been no significant change from prior exams. IMPRESSION: BI-RADS Category 1, Negative mammogram Yearly screening mammography is recommended. Breast Density - Category B - There are scattered areas of fibroglandular density. Breast density Category C or D implies that the patient has dense breast tissue. Dense breast tissue can make it harder to find cancer on a mammogram. Dense breast tissue is also associated with an increased risk of breast cancer. This information about the result of the mammogram report was provided to the patient to raise their awareness. Use this report when you speak with the patient about their risks for breast cancer, which includes their family history. At that time, you may recommend additional screening tests (Ultrasound or MRI) as these tests may add significant information. A negative radiographic report should not delay biopsy if a dominant or clinically suspicious mass is present. Up to ten percent of cancers are not identified on mammography. A negative report may reinforce clinical impression. Adenosis and dense breasts may obscure an underlying neoplasm. False positive reports average 6 to 10%. Patient will receive a letter notifying them of these results.
== END 2025-02-06 01:46 ==
PROVIDERS: PCP Nurse Practitioner Family; Visit Provider Nurse Practitioner Family
DX: Z12.31 Encounter for screening mammogram for malignant neoplasm of breast (principal); R92.323 Mammographic fibroglandular density, bilateral breasts
CPT/HCPCS: 77063; 77067

== ENCOUNTER 2025-03-04 16:17 | Outpatient (REF) | payer BC, SELFPAY ==
[2025-03-04 21:30] LABS: Glucose Negative (Negative)
[2025-03-04 21:36] LABS: C & S Indicated? No; WBC 0-2 HPF (0-5)
== END 2025-03-04 16:18 | disposition home or self-care (01) ==
LOC: NCHCN 16:17
PROVIDERS: PCP Nurse Practitioner Family; Visit Provider Nurse Practitioner Family
DX: R31.29 Other microscopic hematuria (principal)
CPT/HCPCS: 81003; 81015

== ENCOUNTER 2025-03-18 11:10 | Outpatient (REF) | payer BC, SELFPAY ==
[2025-03-18 15:29] LABS: Glucose Negative (Negative)
== END 2025-03-18 11:11 | disposition home or self-care (01) ==
LOC: NCHCN 11:10
PROVIDERS: PCP Nurse Practitioner Family; Visit Provider Nurse Practitioner Family
DX: R31.29 Other microscopic hematuria (principal)
CPT/HCPCS: 81003